=== PATIENT | female | born 1995 | race Caucasian/White ===

== ENCOUNTER 2017-11-08 10:21 | Emergency (ER) | payer BC ==
[~2017-11-08] VITALS: Ht 160 cm; Wt 67.1 kg
[~2017-11-08 10:21] MED LIST: ADVAIRDISKUS; ALBUTEROL NEB; BACTRIM; BENTYL20 MG PO; CIPRO500 MG PO; CYMBALTA30 MG; DEPAKOTE 250MG250 M1 PO; DEPO-PROVER150 MG/M1; EPIPEN 2-P0.3 MG/0.3 IM; FIORICET; FLOMAX0.4 MG PO; IBUPROFEN 800800 M1 PO; NAPROSYN500 MG PO; NORCO 5-325 TA1 EACH PO; PEPCID40 MG PO; PERCOCET 5-3251 EACH PO; PREDNISONE 10 M10 M1 PO; PROMETHAZINE12.5 M1; SEROQUEL 25 MG25 M1 PO; SYMBICORT; TOPAMAX50 MG; TRAMADOL 50 MG50 MG PO; TUSSIONEX PENN473 ML PO; VALCYCLOVIR; VALIUM5 MG PO; XANAX 0.25 MG0.25 MG PO; ZOFRAN 4 MG ORAL4 MG PO; ZOFRAN ODT4 MG PO; ZOFRAN4 MG PO
[2017-11-08] MEDS ORDERED: SINGULAIR 10 MG10 M1 PO (10:32)
[2017-11-08] MEDS ORDERED: NORTRIPTYLINE H10 M2 PO (10:32)
[2017-11-08] MEDS ORDERED: DULERA 100 MCG/13 GM (10:33)
[2017-11-08] MEDS ORDERED: NAPROSYN500 MG PO (11:17)
[2017-11-08 11:20] VITALS: BP 123/80
== END 2017-11-08 11:22 | disposition home or self-care (01) ==
LOC: M.ERS 10:21
DX: T28.3XXA Burn of internal genitourinary organs, initial encounter (principal); J45.909 Unspecified asthma, uncomplicated; Z86.14 Personal history of Methicillin resistant Staphylococcus aureus infection; Z88.0 Allergy status to penicillin; Z91.018 Allergy to other foods; Z77.22 Contact with and (suspected) exposure to environmental tobacco smoke (acute) (chronic); X10.0XXA Contact with hot drinks, initial encounter; Y93.89 Activity, other specified; Y92.89 Other specified places as the place of occurrence of the external cause; Y99.8 Other external cause status

== ENCOUNTER 2017-12-16 09:44 | Emergency (ER) | payer BC ==
[~2017-12-16] VITALS: Ht 160 cm; Wt 69.0 kg
[~2017-12-16 09:44] MED LIST changes: +DULERA 100 MCG/13 GM; +NORTRIPTYLINE H10 M2 PO; +SINGULAIR 10 MG10 M1 PO
[2017-12-16 11:50] VITALS: BP 125/78
== END 2017-12-16 11:51 | disposition home or self-care (01) ==
LOC: M.ERS 09:44
DX: R51 Headache (principal); J45.909 Unspecified asthma, uncomplicated; Z77.22 Contact with and (suspected) exposure to environmental tobacco smoke (acute) (chronic); Z88.0 Allergy status to penicillin; Z91.018 Allergy to other foods

== ENCOUNTER 2019-06-21 00:47 | Emergency (ER) | payer BC ==
[~2019-06-21] VITALS: Ht 160 cm; Wt 72.6 kg
[2019-06-21] MEDS ORDERED: BIRTH CONTROL (01:01)
[2019-06-21 02:11] LABS: HEMATOCRIT 41.2 % (37.0-47.0); HEMOGLOBIN 14.1 gm/dL (12.0-15.0); MCH 29.7 pg (26.0-34.0); MCHC 34.3 g/dL (28.0-37.0); MCV 86.6 fL (80.0-100.0); MPV 8.9 fl. (7.2-11.1); NUCLEATED RBCS 0 /100WBC; PLATELET COUNT* 205 thou/uL (150-400); RBC 4.76 mil/uL (4.20-5.00); RDW-CV 13.6 % (10.5-14.5); WBC 7.5 thou/uL (4.0-11.0)
[2019-06-21 02:12] LABS: CALCIUM 8.4 mg/dL (8.5-10.1); CREATININE 0.7 mg/dL (0.6-1.3); POTASSIUM 3.8 mmol/L (3.5-5.1)
[2019-06-21 02:17] LABS: TOTAL BILIRUBIN 0.6 mg/dL (<0.1-1.0); TOTAL PROTEIN 7.2 g/dL (6.4-8.2)
[2019-06-21 03:07] LABS: URINE BLOOD NEGATIVE (Negative); URINE CLARITY CLEAR; URINE COLOR YELLOW; URINE GLUCOSE-RANDOM NEGATIVE (Negative); URINE KETONES 1+ (Negative); URINE LEUKOCYTES-REFLEX NEGATIVE (Negative); URINE NITRITE-REFLEX NEGATIVE (Negative); URINE PROTEIN TRACE (Negative); URINE UROBILINOGEN 0.2 E.U./dl (0.2-1.0)
[2019-06-21 03:10] LABS: URINE BILIRUBIN 1+ (Negative)
[2019-06-21 03:12] LABS: ICTOTEST (BILI CONFIRMATORY) Negative (Negative)
[2019-06-21 03:17] LABS: ABSOLUTE LYMPHOCYTES 0.5 thou/uL (0.8-5.3); ABSOLUTE MONOCYTES 0.3 thou/uL (0.0-1.2); ABSOLUTE NEUTROPHILS 6.7 thou/uL (1.6-8.1); PLATELET ESTIMATE ADEQUATE
[2019-06-21] MEDS ORDERED: ZOFRAN ODT4 MG PO (04:00)
[2019-06-21] MEDS ORDERED: KEFLEX500 M1 PO (04:00)
[2019-06-21] MEDS ORDERED: DIFLUCAN150 MG PO (04:00)
[2019-06-21] MEDS ORDERED: CLEOCIN HCL300 MG PO (04:15)
[2019-06-21 04:17] VITALS: BP 116/69
[2019-06-21 04:53] LABS: AMP/METHAMP Negative (Negative); BARBITURATES Negative (Negative); BENZODIAZEPINES Negative (Negative); COCAINE Negative (Negative); METHADONE Negative (Negative); OPIATES POSITIVE (Negative); PCP Negative (Negative); THC Negative (Negative)
--- NOTE | 2019-06-21 10:46 | EKG ---
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
== END 2019-06-21 04:17 | disposition home or self-care (01) ==
LOC: M.ERS 00:47
PROVIDERS: Emergency Medicine
DX: R30.0 Dysuria (principal); R10.12 Left upper quadrant pain; R11.2 Nausea with vomiting, unspecified; M54.9 Dorsalgia, unspecified; J45.909 Unspecified asthma, uncomplicated; Z77.22 Contact with and (suspected) exposure to environmental tobacco smoke (acute) (chronic); Z88.0 Allergy status to penicillin; Z88.1 Allergy status to other antibiotic agents; Z91.018 Allergy to other foods; Z90.89 Acquired absence of other organs; Z86.14 Personal history of Methicillin resistant Staphylococcus aureus infection; Z79.899 Other long term (current) drug therapy

== ENCOUNTER 2019-10-30 22:48 | Emergency (ER) | payer BC ==
[~2019-10-30] VITALS: Ht 160 cm; Wt 77.1 kg
[~2019-10-30 22:48] MED LIST changes: +BIRTH CONTROL; +CLEOCIN HCL300 MG PO; +DIFLUCAN150 MG PO; +KEFLEX500 M1 PO
[2019-10-30] MEDS ORDERED: SINGULAIR 10 MG10 M1 PO (22:58)
[2019-10-31] MEDS ORDERED: PREDNISONE50 MG PO (00:12)
[2019-10-31 00:26] VITALS: BP 122/84
== END 2019-10-31 00:30 | disposition home or self-care (01) ==
LOC: M.ERS 22:48
DX: R22.0 Localized swelling, mass and lump, head (principal); T78.1XXA Other adverse food reactions, not elsewhere classified, initial encounter; J45.909 Unspecified asthma, uncomplicated; Z77.22 Contact with and (suspected) exposure to environmental tobacco smoke (acute) (chronic); Z88.1 Allergy status to other antibiotic agents; Z88.0 Allergy status to penicillin; Z91.018 Allergy to other foods; Z90.89 Acquired absence of other organs; Z86.14 Personal history of Methicillin resistant Staphylococcus aureus infection; X58.XXXA Exposure to other specified factors, initial encounter

== ENCOUNTER 2021-05-07 13:28 | Emergency (ER) | payer BC ==
[~2021-05-07] VITALS: Ht 157.5 cm; Wt 87.1 kg
[~2021-05-07 13:28] MED LIST changes: +PREDNISONE50 MG PO
--- NOTE | 2021-05-07 16:12 | EKG ---
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
[2021-05-07 16:42] LABS: ABSOLUTE LYMPHOCYTES 0.9 thou/uL (0.8-5.3); ABSOLUTE MONOCYTES 0.6 thou/uL (0.0-1.2); ABSOLUTE NEUTROPHILS 3.1 thou/uL (1.6-8.1); BASOPHILS 0.3 %; EOSINOPHILS 0.1 %; HEMATOCRIT 38.8 % (37.0-47.0); HEMOGLOBIN 12.8 gm/dL (12.0-15.0); LYMPHOCYTES 19.3 %; MCH 28.9 pg (26.0-34.0); MCHC 32.9 g/dL (28.0-37.0); MONOCYTES 13.6 %; MPV 8.6 fl. (7.2-11.1); NUCLEATED RBCS 0 /100WBC; PLATELET COUNT* 198 thou/uL (150-400); POLYS 66.7 %; RBC 4.41 mil/uL (4.20-5.00); RDW-CV 13.3 % (10.5-14.5); WBC 4.7 thou/uL (4.0-11.0)
[2021-05-07 16:48] LABS: CALCIUM 8.4 mg/dL (8.5-10.1); CREATININE 0.7 mg/dL (0.6-1.3); POTASSIUM 3.4 mmol/L (3.5-5.1)
[2021-05-07 16:52] LABS: ALBUMIN 3.6 g/dL (3.4-5.0); TOTAL BILIRUBIN 0.2 mg/dL (<0.1-1.0); TOTAL PROTEIN 6.8 g/dL (6.4-8.2)
[2021-05-07] MEDS ORDERED: TESSALON PERLE100 MG PO (20:04)
[2021-05-07] MEDS ORDERED: PROAIR HFA8.5 GM INH (20:04)
[2021-05-07 20:15] VITALS: BP 112/52
== END 2021-05-07 20:15 | disposition home or self-care (01) ==
LOC: M.ERS 13:28
PROVIDERS: Physician Assistant
DX: U07.1 COVID-19 (principal); E86.0 Dehydration; J45.909 Unspecified asthma, uncomplicated; Z90.89 Acquired absence of other organs; Z79.899 Other long term (current) drug therapy; Z88.0 Allergy status to penicillin; Z88.1 Allergy status to other antibiotic agents; Z91.018 Allergy to other foods